=== PATIENT | male | born 2000 | race Caucasian/White ===

== ENCOUNTER 2021-02-02 09:17 | Emergency (ER) | payer SELFPAY ==
[~2021-02-02] VITALS: Ht 180.3 cm; Wt 111.1 kg
[2021-02-02 09:17] VITALS: BP_SYST 145
--- NOTE | 2021-02-02 09:17 | NUR ---
triaged at bedside, placed in bed 3
--- NOTE | 2021-02-02 09:25 | NUR ---
PT BIB FRIEND C/O N/V/D, ABD PAIN AND MORA X 1 MONTH. PT REPORTS THAT HE OVER THE WEEKEND HAD A HARD TIME EVEN KEEPING WATER DOWN. PT IS AN EXCHANGE STUDENT FROM [place] AND HAS BEEN IN THE [place] SINCE THE END OF NOVEMBER. STATES HE WAS TESTED FOR COVID THIS PAST WEDNESDAY AND WAS NEGATIVE. REPORTS THAT OVER THE LAST WEEK HE HAS BEEN FEELING WORSE. PT PRESENTS AMBULATORY, WELL NOURISHED, AAOX4, V/S STABLE
--- NOTE | 2021-02-02 09:37 | NUR ---
ER DR. THOMAS AT THE BEDSIDE EXAMINING PT
[2021-02-02] MEDS ORDERED: NACL 0.9% 1,000 ML IV ONE (09:45)
[2021-02-02] MEDS ORDERED: METOCLOPRAMIDE HCL 10 MG/2 ML VIAL IVP ONE (09:45)
[2021-02-02] MEDS ORDERED: DIPHENHYDRAMINE INJ 50 MG/ML VIAL IVP ONE (09:45)
--- NOTE | 2021-02-02 09:50 | NUR ---
# 20 gauge angiocath placed to RAC. Use of asceptic technique. Opsite placed over site. Blood return noted. Blood for lab drawn from site. Flushed with 10 cc of normal saline. No evidence of infiltration noted. Patient tolerated well.
[2021-02-02 10:08] LABS: BASOPHILS % (AUTO) 0.4 % (0.0-2.0); EOSINOPHILS % (AUTO) 0.7 % (0.0-4.0); HEMATOCRIT 49.6 % (36-54); HEMOGLOBIN 16.9 g/dL (14.0-18.0); LYMPHOCYTES # (AUTO) 1.1 K/uL (1.0-5.5); LYMPHOCYTES % (AUTO) 16.5 % (20.5-51.5); MEAN CORPUSCULAR HEMOGLOBIN 30 pg (27-31); MEAN CORPUSCULAR HGB CONC 34 % (32-36); MEAN CORPUSCULAR VOLUME 87 fL (79.0-98.0); MONOCYTES % (AUTO) 14.6 % (1.7-9.3); NEUTROPHILS # (AUTO) 4.7 K/uL (1.8-7.7); NEUTROPHILS % (AUTO) 67.8 % (40.0-70.0); PLATELET COUNT (AUTO) 157 K/uL (130-430); RED BLOOD CELL COUNT(AUTO) 5.72 MIL/uL (4.2-6.2); RED CELL DISTRIBUTION WIDTH 13.3 % (9.0-15.0); WHITE BLOOD COUNT (AUTO) 6.9 K/uL (4.5-11.0)
[2021-02-02 10:16] LABS: CREATININE 1.35 mg/dL (0.55-1.30); POTASSIUM 3.6 mmol/L (3.5-5.1)
[2021-02-02 10:19] LABS: BILIRUBIN,URINE 1+ (NEGATIVE); BLOOD, URINE 1+ (NEGATIVE); CLARITY/URINE CLEAR (CLEAR); COLOR,URINE YELLOW (YELLOW); GLUCOSE,URINE NEGATIVE (NEGATIVE); KETONES,URINE 2+ (NEGATIVE); LEUKOCYTE ESTERASE ,URINE NEGATIVE (NEGATIVE); NITRITE, URINE NEGATIVE (NEGATIVE); PROTEIN URINE TRACE (NEGATIVE); UROBILINOGEN,URINE 0.2 (0.2-1.0)
[2021-02-02 10:21] LABS: ALBUMIN 3.8 g/dL (3.4-4.8); TOTAL BILIRUBIN 0.6 mg/dL (0.0-1.0)
--- NOTE | 2021-02-02 10:30 | NUR ---
PT SLEEPING IN GURNEY, NO DISTRESS, V/S STABLE
[2021-02-02 11:00] LABS: BACTERIA,URINE None Seen /HPF (None Seen); MUCUS,URINE 2+ /LPF (None Seen); WBC,URINE 0-3 /HPF (0-3)
[2021-02-02] MEDS ORDERED: FAMO-279 PO (11:17)
[2021-02-02] MEDS ORDERED: DICY10SO PO (11:17)
[2021-02-02] MEDS ORDERED: ONDA-8 TL (11:17)
[2021-02-02 11:40] VITALS: BP_SYST 145
--- NOTE | 2021-02-02 11:40 | NUR ---
Patient given written and verbal discharge instructions and verbalizes understanding. ER MD discussed with patient the results and treatment provided. Patient in stable condition. ID arm band removed. IV catheter removed intact and dressing applied, no active bleeding. Rx of ZOFRAN, DICLOMINE given. Patient educated on pain management and to follow up with PMD. Pain Scale 0/10. Opportunity for questions provided and answered. Medication side effect fact sheet provided.
== END 2021-02-02 11:40 | disposition home or self-care (01) ==
LOC: SED 09:17
DX: K52.9 Noninfective gastroenteritis and colitis, unspecified (principal); Z79.899 Other long term (current) drug therapy
CPT/HCPCS: 36415; 80053; 81000; 83690; 85025; 96361; 96374; 96375; 99284; J1200; J2765; J7030